=== PATIENT | female | born 1935 | race Caucasian/White ===

== ENCOUNTER 2016-09-19 05:32 | Inpatient (IN) ==
[2016-09-07 10:48] LABS: Basophils # 0.1 10*3/uL (0.0-0.2); Basophils % 0.6 % (0.0-0.8); Eosinophils # 0.3 10*3/uL (0.0-0.87); Eosinophils % 3.3 % (0.00-10.9); Hematocrit 43.2 VOL% (35.7-47.0); Hemoglobin 13.6 GM/DL (12.0-16.0); Immature Granulocytes % 0.4 %; Immature Granulocytes Absolute 0.03 #; Lymphocytes # 1.8 10*3/uL (1.4-4.0); Lymphocytes % 21.9 % (21.3-54.2); Mean Corpuscular HGB Conc 31.5 GM/DL (32-36); Mean Corpuscular Hemoglobin 27 PG (27-34); Mean Corpuscular Volume 85.7 FL (87-102); Mean Platelet Volume 10.8 FL (9.6-12.0); Monocytes # 0.6 10*3/uL (0.11-0.8); Monocytes % 7.7 % (1.7-12.7); Neutrophils # 5.4 10*3/uL (1.4-7.4); Neutrophils % 66.1 % (38.7-73.9); Platelet Count 231 T/CUMM (130-400); Red Blood Count 5.04 MC/CUMM (3.8-5.5); Red Cell Distribution Width 13.9 % (9.3-17.3); White Blood Count 8.2 T/CUMM (4-12)
[2016-09-07 10:54] LABS: Apearance,Urine Slightly Hazy (Clear); Bacteria,Urine Occasional /HPF (Few); Bilirubin,Urine Negative (Negative); Blood, Urine Negative (Negative); Glucose,Urine (UA) Negative (Negative); Ketones,Urine Negative (Negative); Mucus,Urine Occasional /LPF (Occasional); Nitrite,Urine Negative (Negative); Protein,Urine Negative; RBC,Urine 2 /HPF (0-4); Squamous Epithelial Cell,Urine Occasional /HPF (0-10); Urine Color Yellow (Yellow); Urine Specific Gravity 1.016 (1.001-1.035); Urine Urobilinogen < 2.0 EU/DL (0.2-1.0); WBC,Urine 22 /HPF (0-6)
[2016-09-07 10:58] LABS: PT Patient Result 10.7 SECS; Partial Thromboplastin Time 26.8 SECS (0-40)
[2016-09-07 11:22] LABS: Albumin 4.1 G/DL (3.4-5.0); Bilirubin,Total 0.5 MG/DL (0.2-1.0); Calcium 8.9 MG/DL (8.5-10.1); Osmolality,Calculated 287.1 MOS/KG (273-304); Potassium 4.4 MMOL/L (3.5-5.1); Total Protein 6.5 G/DL (6.4-8.3)
--- NOTE | 2016-09-07 11:50 | XRay Report ---
XR chest 2V Indication: Preoperative respiratory evaluation. Comparison: Chest x-ray 05/06/2015 Technique: PA and lateral chest x-ray was performed. Findings: The heart size is within normal limits. Mild atherosclerotic calcification of the aortic knob is present. The mediastinal contour demonstrates no significant abnormality. The lungs are clear. Bones and soft tissues demonstrate no acute abnormality. Surgical absence of the gallbladder is demonstrated. Impression: 1. No active cardiopulmonary disease. 09/07/2016 11:47 AM PROCEDURE INTERPRETED AT [facility] DEPARTMENT OF RADIOLOGY Final Report Signed by: Dr. Winston Fernandez
[2016-09-19] MEDS ORDERED: VANCOMYCIN INJ 1,000 MG in SODIUM CHLORIDE 0.9% 250 ML IV ONE (06:00)
[2016-09-19] MEDS ORDERED: ceFAZolin 1,000 MG VIAL ONE (06:08)
[2016-09-19] MEDS ORDERED: FAMOTIDINE 20 MG TABLET ONE (06:08)
[2016-09-19] MEDS ORDERED: SODIUM CHLORIDE 0.9% 100 ML IV ONE ×2 (06:08→06:10)
[2016-09-19] MEDS ORDERED: VANCOMYCIN 1,000 MG VIAL ONE (06:08)
[2016-09-19] MEDS ORDERED: LORazepam 1 MG TABLET ONE (06:08)
--- NOTE | 2016-09-19 06:57 | EKG Report ---
Stationary ECG Study [facility] Test Date: 09/19/2016 6:56:05 AM Pat Name: IVONE KASPER Department: Room: 611 Gender: F Nozzle Tender: JESSICA : 1935 Requested by: Singh Mcintyre Order Number: [id number] Reading MD: MARGOT LOPEZ Intervals [place] Rate: 57 P: 49 WY: 166 QRS: -10 QRSD: 86 T: 18 QT: 446 QTc: 440 Interpretive Statements SINUS RHYTHM WITH OCCASIONAL VENTRICULAR PREMATURE COMPLEXES LOW QRS VOLTAGE IN PRECORDIAL LEADS ANTEROSEPTAL MYOCARDIAL INFARCTION, PROBABLY OLD LEFT AXIS DEVIATION Electronically Signed On 09-19-16 07:15:35 CDT by MARGOT LOPEZ [email or web address]
[2016-09-19] MEDS ORDERED: FAMOTIDINE 20 MG TABLET PO ONE (07:00)
[2016-09-19] MEDS ORDERED: LORazepam 1 MG TABLET PO ONE (07:00)
--- NOTE | 2016-09-19 07:01 | History and Physical Update ---
History and Physical Update - History and Physical H&P was reviewed, the patient examined and there: are no changes in the patients condition since last H&P was completed.
[2016-09-19] MEDS: LACTATED RINGERS 1,000 ML IV SCH ×2 (07:31→17:38)
[2016-09-19] MEDS ORDERED: METOCLOPRAMIDE 10 MG TABLET PO ONE (08:00)
[2016-09-19] MEDS ORDERED: BISACODYL 10 MG SUPP RECTAL PRN (09:19)
[2016-09-19] MEDS ORDERED: ONDANSETRON 4 MG/2 ML VIAL IV PRN (09:19)
[2016-09-19] MEDS ORDERED: PROMETHAZINE 25 MG/1 ML VIAL IM PRN (09:19)
[2016-09-19] MEDS ORDERED: diphenhydrAMINE CAP 25 MG CAPSULE PO PRN (09:19)
[2016-09-19] MEDS ORDERED: NALOXONE 0.4 MG/ML VIAL IV PRN (09:19)
[2016-09-19] MEDS ORDERED: LACTULOSE 20 GM/30 ML UDCUP PO PRN (09:19)
[2016-09-19] MEDS ORDERED: TEMAZEPAM 7.5 MG CAPSULE PO PRN (09:19)
[2016-09-19] MEDS ORDERED: ONDANSETRON 4 MG/2 ML VIAL ONE (09:20)
[2016-09-19] MEDS ORDERED: PROPOFOL 200 MG/20 ML VIAL IV ONE (09:20)
[2016-09-19] MEDS ORDERED: DEXAMETHASONE 10 MG/1 ML VIAL ONE (09:20)
[2016-09-19] MEDS ORDERED: NEOSTIGMINE 10 MG/10 ML VIAL ONE (09:20)
[2016-09-19] MEDS ORDERED: GLYCOPYRROLATE 0.4 MG/2 ML VIAL ONE (09:20)
[2016-09-19] MEDS ORDERED: PHENYLEPHRINE 1 MG/10 ML SYRINGE IV ONE (09:20)
[2016-09-19] MEDS ORDERED: KETOROLAC 30 MG/1 ML VIAL ONE (09:20)
[2016-09-19] MEDS ORDERED: ROCURONIUM 100 MG/10 ML VIAL IV ONE (09:20)
[2016-09-19] MEDS ORDERED: LIDOCAINE 2% 5 ML VIAL ONE (09:20)
[2016-09-19] MEDS ORDERED: DEXTROSE 50% 25 GM/50 ML VIAL IV PRN (09:28)
[2016-09-19] MEDS ORDERED: GLUCAGON 1 MG VIAL IM PRN (09:28)
--- NOTE | 2016-09-19 10:56 | XRay Report ---
History: Postop total right hip replacement Date: 09/19/2016 Study: Right hip single view Comparison exam: No previous The patient is immediately postop right hip replacement. Hip prosthesis is well conjugated. Postsurgical soft tissue emphysema overlies the lateral right hip region. There is no radiographic evidence of complication. There are some superimposed surgical instruments over the regional soft tissues. Impression: Satisfactory appearance of the right hip replacement PROCEDURE INTERPRETED AT [facility] DEPARTMENT OF RADIOLOGY Final Report Signed by: Dr. Ana Lilia Xiao
[2016-09-19 11:02] LABS: Apearance,Urine CLEAR (Clear); Bacteria,Urine Few /HPF (Few); Bilirubin,Urine Negative (Negative); Blood, Urine Negative (Negative); Glucose,Urine (UA) Negative (Negative); Ketones,Urine Negative (Negative); Mucus,Urine Occasional /LPF (Occasional); Nitrite,Urine Negative (Negative); Protein,Urine Negative; RBC,Urine 4 /HPF (0-4); Squamous Epithelial Cell,Urine Occasional /HPF (0-10); Urine Color Straw (Yellow); Urine Specific Gravity 1.006 (1.001-1.035); Urine Urobilinogen < 2.0 EU/DL (0.2-1.0); WBC,Urine 39 /HPF (0-6)
[2016-09-19] MEDS ORDERED: SEVOFLURANE 1 UNIT/15 MINUTE INH ONE (11:21)
--- NOTE | 2016-09-19 11:21 | Anesthesia Post-Op ---
Anesthesia Post OP - Post Ansesthetic Evaluation Patient seen in post op: Yes Resp: within normal limits CV: within normal limits Mental: within normal limits Temp: within normal limits Mgrg-[id number]: within normal limits Nausea and Vomiting: within normal limits Pain: within normal limits
[2016-09-19] MEDS ORDERED: ACETAMINOPHEN 1,000 MG/100 ML VIAL IV ONE (11:22)
[2016-09-19] MEDS ORDERED: fentaNYL 100 MCG/2 ML VIAL ONE (11:22)
[2016-09-19] MEDS ORDERED: MIDAZOLAM 2 MG/2 ML VIAL ONE (11:22)
[2016-09-19] MEDS ORDERED: LACTATED RINGERS 1,000 ML IV ONE (11:22)
[2016-09-19] MEDS: MORPHINE PCA 30 MG/30 ML SYRINGE IV SCH (11:38)
[2016-09-19] MEDS: INSULIN REGULAR 100 UNIT/ML SUBCUT SCH ×3 (13:24→21:48)
--- NOTE | 2016-09-19 16:28 | Orthopedic Progress Note ---
Orthopedics - Subjective Interval history: Comfortable alert neurovascular intact discussed up in a.m. Exam - Constitutional Vitals: Period Temp Pulse Resp BP Sys/Villavicencio Pulse Ox Last 24 Hr 97.0 F-97.9 F 63-105 16-20 123-191/51-96 75-100 Results - Labs CBC & BMP: 09/07/16 10:38 09/07/16 10:38
--- NOTE | 2016-09-19 16:35 | Operative Note ---
DATE OF SURGERY: 09/19/2016 PREOPERATIVE DIAGNOSIS: OSTEOARTHRITIS, RIGHT HIP. POSTOPERATIVE DIAGNOSIS: OSTEOARTHRITIS, RIGHT HIP. OPERATIVE PROCEDURE: RIGHT TOTAL HIP. SURGEON: Nabil Lobo Jr., MD COMMUNICATIONS SUPERINTENDENT: Dr. Aburto. ANESTHESIA: General. INDICATIONS: An 81-year-old white female with severe osteoarthritis to her right hip. She is havin g difficult time mobilizing and is in severe pain, unresponsive to conservative measures. She has b een cleared medically for surgery, presenting today for elective right total hip. OPERATIVE PROCEDURE: The patient was taken to the operating room and under general anesthetic, posit ioned in the left lateral decubitus position. The right hip and lower extremity were prepped and dr aped in the usual sterile manner. A curvilinear incision was made over the posterolateral aspect of the right hip. Sharp dissection was carried down through the skin and subcutaneous tissue. The g luteus and IT band were split. The hip internally rotated, and the short rotators and capsule were reflected off the back of the proximal femur. The head dislocated and resected. The acetabulum exp osed. Sequentially reamed up to 47 and 48, cup press-fit into place and secured with 2 screws. A 1 0-degree all polyethylene liner placed. The proximal femur was then prepared for the implant. Of n ote, the chondral surfaces of both head and acetabulum were severely involved. Once the proximal fe mur was prepared for the cemented stems, ultimately selecting a size 4 with a plus 1 head. These tr ial components were removed using third-generation techniques. The femoral stem was cemented and pl aced after the cement hardened, trial reductions were performed again selecting the wand head. Afte r dislocation and removal of the trial, the permanent implant was secured on the taper and hip reloc ated. The wound was copiously irrigated. The intraoperative film confirmed satisfactory postop pos itioning. Posterior capsule layer was closed with #1 Vicryl also the IT bland and gluteal layer bibi sed with #1 Vicryl over two 1/8-inch Hemovac drains. 2-0 Vicryl for the subcutaneous layer and stap les for skin. A sterile dressing applied, she rolled supine, abduction pillow placed. Taken to the recovery room in stable condition.
--- NOTE | 2016-09-19 17:29 | Cardiology Consult Note ---
Kelly Jones April, RN, am scribing for, and in the presence of, LoveArteagaDO kathleen 17 :29. Assessment and Plan - Time spent with patient Time spent with patient: Greater than 30 minutes (Due to assessment, planning, documentation, medication review) (1) Status post total hip replacement, right Status: Acute Current Visit: Yes (2) CAD (coronary artery disease) Status: Chronic Current Visit: Yes Qualifiers: Coronary Disease-Associated Artery/Lesion type: [place] artery [place] vs. transplanted heart: [place] heart Associated angina: without angina Qualified Code(s): I25.10 - Atherosclerotic heart disease of [place] coronary artery without angina pectoris (3) Hyperlipidemia Status: Chronic Current Visit: Yes (4) Hypertension Status: Chronic Current Visit: Yes History of Present Illness - Data of Consult Patient: known to practice within the last 3 years Consult date: 09/19/16 Requesting Physician: Nabil Lobo Jr. - Consult Narrative Reason for consult: Follow postoperatively History of present illness: Utility Specialist: Dr. Quintero Ms. Anderson is a 81 year old female with a history of CAD, hypertension, diabetes, dyslipidemia, and seizures. She is still very drowsy so much of this history is taken from her children who are at the bedside. February 2013 at [place] she had PCI to RCA. Other surgical history includes bilateral knee, cholecystectomy , hysterectomy, hernia repair, right arm, and bilateral cataract. Family history includes father with AR and mother and siblings with cancer. She reports being a lifetime non-smoker. She saw Dr. Quintero in the clinic September 06, 2016 and she had echo of the revealed ejection fraction 55%. On September 07, 2016 she had nuclear stress test that was read as probably a normal perfusion study with no evidence of ischemia. It showed small partially reversible perfusion abnormality of moderate intensity in the apical segment, anterior region, and inferior region. Improvement with prone imaging suggesting artifact was noted. Dr. Quintero recommended proceeding with surgery because the patient was found to be intermediate risk of perioperative cardiovascular complications due to her condition. Ms. Anderson was admitted today for right total hip replacement with Dr. Yamil Mahoney. Currently she is resting in bed in no acute distress. She denies having any chest pain, shortness of breath, palpitations, or dizziness. Oxygen is in use via nasal cannula. Vital signs are stable with heart rates in the 70s-80s and blood pressure 120s over 50s. Home meds have been restarted, Plavix is scheduled to be restarted with a dose given in the morning. EKG done this morning showed sinus bradycardia with heart rate of 57. I discussed with Ms. Mendoza. History as above. The patient is seen post operatively and has no complaints. She recently had a nuclear stress test that was low risk. I saw the patient later in the day than Ms. Garvin. There is no one present for the discussion. CC: Nabil Lobo Jr., MD - Home Medications and Allergies Home Medications: Home Medications Medication Instructions Recorded Confirmed Type Aspirin [Ecotrin] 81 mg PO DAILY 04/20/15 09/19/16 History Clopidogrel [Plavix] 75 mg PO DAILY 04/20/15 09/19/16 History Donepezil HCl 10 mg PO DAILY 04/20/15 09/19/16 History Lisinopril 40 mg PO DAILY 04/20/15 09/19/16 History Metoprolol Tartrate Tab [Lopressor 25 mg PO DAILY 04/20/15 09/19/16 History Tab] Naproxen [Naprosyn Tab] 250 mg PO BID 04/20/15 09/19/16 History OXcarbazepine [Oxcarbazepine] 75 mg PO DAILY 04/20/15 09/19/16 History Pantoprazole Tab [Protonix Tab] 40 mg PO DAILY 04/20/15 09/19/16 History Rosuvastatin [Crestor] 20 mg PO DAILY 04/20/15 09/19/16 History Sertraline [Zoloft] 25 mg PO DAILY 04/20/15 09/19/16 History glipiZIDE [Glipizide] 5 mg PO DAILY 04/20/15 09/19/16 History Docusate Sodium [Stool Softener] 100 mg PO DAILY 09/19/16 09/19/16 History Timolol 0.5% Oph Soln [Timoptic 1 drop BOTH EYES BID 09/19/16 09/19/16 History 0.5%] Allergies/Adverse Reactions: Allergies Allergy/AdvReac Type Severity Reaction Status Date / Time povidone-iodine Allergy Severe HIVES Verified 09/19/16 06:55 [From Betadine] soap [From Betadine] Allergy Severe HIVES Verified 09/19/16 06:55 - Constitutional Constitutional: Present: as per HPI - EENT Eyes: Present: loss of vision, requires corrective lense Ears: Absent: decreased hearing, tinnitus Nose, mouth and throat: Absent: epistaxis, headache(s), neck pain - Cardiovascular Cardiovascular: Absent: chest pain at rest, chest pain with activity, diaphoresis, dyspnea, dyspnea on exertion, edema, radiating jaw, neck or arm pain, lightheadedness, orthopnea, palpitations - Respiratory Respiratory: Absent: cough, dyspnea, hemoptysis, dyspnea on exertion, wheezing - Gastrointestinal Gastrointestinal: Absent: abdominal pain, constipation, diarrhea, hematemesis, hematochezia, melena, nausea, vomiting - Genitourinary Genitourinary: Absent: dysuria, hematuria - Musculoskeletal Musculoskeletal: Present: limited range of motion, muscle weakness - Neurological Neurological: Present: abnormal gait. Absent: dizziness, headache(s), syncope - Psychiatric Psychiatric: Absent: anxiety, depression - Endocrine Endocrine: Present: fatigue - Hematologic/Lymphatic Hematologic/Lymphatic: Present: easy bruising. Absent: easy bleeding Medical,Surgical,& Family Hx - Medical History Cardio: History of: CAD, Hypertension Neurology: History of: Seizures HEENT: History of: Eye Problem, Dental Problems (Dentures) Endocrine: History of: Diabetes Mellitus (NIDDM) Genitourinary: History of: Recurring Urinary Tract Infections (LAST WEEK HAD ANTIOBIOTIC 08/30/16) Gastrointestinal: History of: GERD Musculoskeletal: History of: Musculoskeletal Problems (broken right arm OA R) - Surgical History Cardiac Surgeries: Sugical HX of: Cardiac Catheterization (At [facility] in February 2013 with stent) HEENT Surgeries: Surgical HX of: Eye Surgery (Bilateral cataracts), Tonsilectomy & Adenoidectomy Abdominal Surgeries: Surgical HX of: Cholecystectomy, Hernia Repair (has mesh) Reproductive Surgeries: Surgical HX of;: Hysterectomy (total) Orthopedic Surgeries: Surgical HX of;: Total Hip Replacement (R HIP), Total Knee Replacement (BILATERAL) - Family History Family History: Reports;: Family Cancer (Mother and siblings), Family Heart Disease (Father) - Social History Smoking Status: Never smoker Have you smoked in the last 12 months: No Frequency of Alcohol Use: None Type of Drug Use: None Lives With:: Alone Functional capacity: uses cane/walker Physical Examination Vital Signs Temp Pulse Resp BP Pulse Ox 97.9 F 63 20 191/86 97 09/19/16 07:13 09/19/16 07:13 09/19/16 07:13 09/19/16 07:13 09/19/16 07:13 General: Present: Appears Well, No Apparent Distress HEENT: Present: PERRL, Mucus Membranes Moist Neck: Present: Supple Neck, Midline Trachea, No Bruit Cardiac: Present: Regular Rhythm, Audible Murmur (tricuspid insufficiency 3/6 murmur) Lungs: Present: Normal Breath Sounds, Oxygen (Via nasal cannula), No Wheeze, Rales, Rhonchi Neuro: Absent: Resting Tremor, Essential Tremor Abdomen: Present: Soft, Active Bowel Sounds, Non-Tender. Absent: Distended Incision: Present: Incision Site (Dressing to right hip dry and intact) Musculoskeletal: Present: Decreased Range of Motion, Pain in Joint Gait: Present: Poor Gait Extremities: Present: No Edema, Normal Upper Extr. Pulses, Normal Lower Extr. Pulses. Absent: Normal Gait Result/EKG - Labs CBC & BMP: 09/07/16 10:38 09/07/16 10:38 Lab Results: I have reviewed the past 24 hour labs Labs: Laboratory Results - last 24 hr 09/19/16 09/19/16 09/19/16 06:22 06:22 10:05 POC Glucose 122 H Urine Color Straw Urine Appearance Clear Urine pH 7.0 Ur Specific [place] 1.006 Urine Protein Negative Urine Glucose (UA) Negative Urine Ketones Negative Urine Blood Negative Urine Nitrate Negative Urine Bilirubin Negative Urine Urobilinogen < 2.0 H Urine Leukocytes Small H Urine RBC 4 Urine WBC 39 Ur Squamous Epith Cells Occasional Urine Bacteria Few Urine Mucus Occasional Ur Culture Indicated? Results to follow Blood Type O POSITIVE Antibody Screen Negative - EKG EKG results: interpreted by me EKG shows: sinus rhythm ILove Shea, DO, personally performed the services described in this documentation, ascribed by Elke Mendoza RN in my presence, and it is both accurate and complete 729 .
[2016-09-19] MEDS: DOCUSATE SODIUM 100 MG CAPSULE PO SCH (21:48)
[2016-09-19] MEDS: NAPROXEN 250 MG TABLET PO SCH (21:48)
[2016-09-20] MEDS: FONDAPARINUX 2.5 MG/0.5 ML SYRINGE SUBCUT SCH (03:15)
[2016-09-20 06:28] LABS: Basophils % 0.2 % (0.0-0.8); Eosinophils % 0.1 % (0.00-10.9); Hematocrit 25.8 VOL% (35.7-47.0); Hemoglobin 8.3 GM/DL (12.0-16.0); Immature Granulocytes % 0.6 %; Immature Granulocytes Absolute 0.07 #; Lymphocytes # 1.7 10*3/uL (1.4-4.0); Lymphocytes % 13.9 % (21.3-54.2); Mean Corpuscular HGB Conc 32.2 GM/DL (32-36); Mean Corpuscular Hemoglobin 27 PG (27-34); Mean Corpuscular Volume 83.2 FL (87-102); Mean Platelet Volume 11.3 FL (9.6-12.0); Monocytes # 1.3 10*3/uL (0.11-0.8); Monocytes % 11.2 % (1.7-12.7); Neutrophils # 8.9 10*3/uL (1.4-7.4); Platelet Count 219 T/CUMM (130-400); Red Cell Distribution Width 13.9 % (9.3-17.3)
[2016-09-20] MEDS: LACTATED RINGERS 1,000 ML IV SCH (06:49)
[2016-09-20 06:58] LABS: Osmolality,Calculated 285.3 MOS/KG (273-304)
[2016-09-20 06:59] LABS: Potassium 4.4 MMOL/L (3.5-5.1)
[2016-09-20] MEDS ORDERED: SODIUM CHLORIDE 0.9% 250 ML IV PRN (07:46)
--- NOTE | 2016-09-20 07:46 | Orthopedic Progress Note ---
Orthopedics - Subjective Interval history: Comfortable Hemovac removed neurovascular intact will start PT today hemoglobin down to 8.3 expected to be even lower tomorrow therefore would give her some blood this afternoon after her PT will need rehab/swing bed placement. Discussed agrees. Exam - Constitutional Vitals: Period Temp Pulse Resp BP Sys/Villavicencio Pulse Ox Last 24 Hr 96.9 F-97.9 F 57-105 16-20 97-187/42-96 75-100 Results - Labs CBC & BMP: 09/20/16 05:41 09/20/16 05:41
[2016-09-20] MEDS ORDERED: LISINOPRIL 20 MG TABLET PO SCH (09:00)
[2016-09-20] MEDS: INSULIN REGULAR 100 UNIT/ML SUBCUT SCH ×4 (10:28→22:14)
[2016-09-20] MEDS: OXcarbazepine 300 MG TABLET PO SCH (10:41)
[2016-09-20] MEDS: glipiZIDE 5 MG TABLET PO SCH (10:41)
[2016-09-20] MEDS: PANTOPRAZOLE 40 MG TABLET PO SCH (10:42)
[2016-09-20] MEDS: CLOPIDOGREL 75 MG TABLET PO SCH (10:42)
[2016-09-20] MEDS: ROSUVASTATIN 20 MG TABLET PO SCH (10:43)
[2016-09-20] MEDS: DONEPEZIL 10 MG TABLET PO SCH (10:43)
[2016-09-20] MEDS: SERTRALINE 25 MG TABLET PO SCH (10:44)
[2016-09-20] MEDS: ASPIRIN EC 81 MG TABLET PO SCH (10:44)
[2016-09-20] MEDS: DOCUSATE SODIUM 100 MG CAPSULE PO SCH ×2 (10:45→22:15)
[2016-09-20] MEDS: NAPROXEN 250 MG TABLET PO SCH ×2 (10:45→22:15)
[2016-09-20] MEDS: METOPROLOL TARTRATE 25 MG TABLET PO SCH (10:46)
[2016-09-20] MEDS: MORPHINE PCA 30 MG/30 ML SYRINGE IV SCH (10:47)
--- NOTE | 2016-09-20 11:21 | Pathology Report from [facility] ---
ACCESSION # : [id number] PATIENT NAME : Ivone Kasper ORDERING DR : ELDA MACIAS JR, MD CLINICAL HX: Right hip osteoarthritis POST-OP DX: Same SPECIMEN INFO: Right hip bone and tissue GROSS DESCRIPTION: The specimen is received in formalin labeled with the patient 's name and consists of a femoral head measuring 4.3 x 4.7 cm x up to 4.8 cm. The articular surface is red-maharaj with an area eburnation noted measuring up to 3.8 cm. Cut surface is smooth with some mild bone softening appreciated. Also in the container are multiple fragments of bone shavings measuring collectively 10.5 x 4.8 cm. Farm Instructor sections submitted in one cassette following decalcification. DIAGNOSIS FOR IVONE KASPER: Right femoral head with changes of degenerative joint disease/ osteoarthritis.Unremarkable hematopoietic marrow with no abnormal collections of blasts, plasma cells, tumor cells or lymphocytes. SERVICE DATE: 09/19/2016 REPORT DATE: 09/20/2016 PATHOLOGIST: Daniel Ta M.D. [facility]
--- NOTE | 2016-09-20 13:59 | Cardiology Progress Note ---
Kelly Jones April, RN, am scribing for, and in the presence of, Jenni Aleman DO 13 :59. Assessment and Plan (1) Status post total hip replacement, right Status: Acute Current Visit: Yes (2) CAD (coronary artery disease) Status: Chronic Current Visit: Yes Qualifiers: Coronary Disease-Associated Artery/Lesion type: [place] artery [place] vs. transplanted heart: [place] heart Associated angina: without angina Qualified Code(s): I25.10 - Atherosclerotic heart disease of [place] coronary artery without angina pectoris (3) Hyperlipidemia Status: Chronic Current Visit: Yes (4) Hypertension Status: Chronic Assessment and plan: Currently the blood pressure is low this is multifactorial anemia with pain and sedation medication will hold her lisinopril. Current Visit: Yes Cardiology - PN: Subj Interval history: Roof Shingler: Dr. Quintero Ms. Anderson is day 1 postop right total hip with Dr. Yamil Mahoney. Dressing noted to right hip dry and intact. Today she is awake and alert. She denies chest pain , shortness of breath, palpitations, or dizziness. Oxygen is in use via nasal cannula. Her H&H this morning is 8.3 and 25.8, she is to get blood after physical therapy. I saw the patient this afternoon with Kelly. Patient is concerned about her low blood pressure I concur we need to decrease her medicines. She is anticipating a transfusion soon she is anemic. She denies any chest pain. I will discontinue her lisinopril her blood pressure comes back up. Exam (Progress Note) - Constitutional Vitals: Period Temp Pulse Resp BP Sys/Villavicencio Pulse Ox Last 24 Hr 96.9 F-97.9 F 57-105 16-20 97-187/42-96 75-100 General appearance: normal weight, no acute distress - Head Head exam: Absent: abrasion, hematoma - Eye Eye exam: Absent: periorbital swelling, laceration to eyelids - Respiratory Respiratory exam: Present: clear to auscultation bilaterally, other (Oxygen via nasal cannula). Absent: accessory muscle use, chest wall tenderness - Cardiovascular Cardiovascular exam: Present: regular rate and rhythm - GI/Abdominal GI/Abdominal exam: Present: normal bowel sounds, soft. Absent: distended, tenderness - Extremities Exam Extremities exam: Present: other (Dressing to right hip). Absent: edema - Neurological Exam Neurological exam: Present: alert, oriented X3 - Psychiatric Psychiatric exam: Present: normal affect, normal mood - Skin Skin exam: Present: warm, dry Result/EKG - Labs CBC & BMP: 09/20/16 05:41 09/20/16 05:41 Lab Results: I have reviewed the past 24 hour labs Labs: Laboratory Results - last 24 hr 09/19/16 09/19/16 09/19/16 10:05 13:15 17:03 WBC RBC Hgb Hct MCV MCH MCHC RDW Plt Count MPV Neut % (Auto) Lymph % (Auto) [place] % (Auto) Eos % (Auto) Baso % (Auto) Neut # (Auto) Lymph # (Auto) [place] # (Auto) Eos # (Auto) Baso # (Auto) Immature Gran % Nucleated RBC % Immature Gran # Nucleated RBCs # Sodium Potassium Chloride Carbon Dioxide Anion Gap BUN Creatinine GFR Calculation BUN/Creatinine Ratio Glucose POC Glucose 149 H 196 H Calculated Osmolality Calcium Urine Color Straw Urine Appearance Clear Urine pH 7.0 Ur Specific [place] 1.006 Urine Protein Negative Urine Glucose (UA) Negative Urine Ketones Negative Urine Blood Negative Urine Nitrate Negative Urine Bilirubin Negative Urine Urobilinogen < 2.0 H Urine Leukocytes Small H Urine RBC 4 Urine WBC 39 Ur Squamous Epith Cells Occasional Urine Bacteria Few Urine Mucus Occasional Ur Culture Indicated? Results to follow Blood Type Antibody Screen Crossmatch Blood Bank Comment 09/19/16 09/20/16 09/20/16 21:04 05:40 05:41 WBC 12.0 RBC 3.10 L Hgb 8.3 L Hct 25.8 L MCV 83.2 L MCH 27 MCHC 32.2 RDW 13.9 Plt Count 219 MPV 11.3 Neut % (Auto) 74.0 H Lymph % (Auto) 13.9 L [place] % (Auto) 11.2 Eos % (Auto) 0.1 Baso % (Auto) 0.2 Neut # (Auto) 8.9 H Lymph # (Auto) 1.7 [place] # (Auto) 1.3 H Eos # (Auto) 0.0 Baso # (Auto) 0.0 Immature Gran % 0.6 Nucleated RBC % 0.0 Immature Gran # 0.07 Nucleated RBCs # 0.00 Sodium Potassium Chloride Carbon Dioxide Anion Gap BUN Creatinine GFR Calculation BUN/Creatinine Ratio Glucose POC Glucose 183 H Calculated Osmolality Calcium Urine Color Urine Appearance Urine pH Ur Specific [place] Urine Protein Urine Glucose (UA) Urine Ketones Urine Blood Urine Nitrate Urine Bilirubin Urine Urobilinogen Urine Leukocytes Urine RBC Urine WBC Ur Squamous Epith Cells Urine Bacteria Urine Mucus Ur Culture Indicated? Blood Type Cancelled Antibody Screen Cancelled Crossmatch See Detail Blood Bank Comment Cancelled 09/20/16 09/20/16 09/20/16 05:41 07:01 Unknown WBC RBC Hgb Hct MCV MCH MCHC RDW Plt Count MPV Neut % (Auto) Lymph % (Auto) [place] % (Auto) Eos % (Auto) Baso % (Auto) Neut # (Auto) Lymph # (Auto) [place] # (Auto) Eos # (Auto) Baso # (Auto) Immature Gran % Nucleated RBC % Immature Gran # Nucleated RBCs # Sodium 141 Potassium 4.4 Chloride 106 Carbon Dioxide 28 Anion Gap 11.4 BUN 19 H Creatinine 0.90 GFR Calculation 63 BUN/Creatinine Ratio 21.00 H Glucose 158 H POC Glucose 164 H Calculated Osmolality 285.3 Calcium 8.0 L Urine Color Urine Appearance Urine pH Ur Specific [place] Urine Protein Urine Glucose (UA) Urine Ketones Urine Blood Urine Nitrate Urine Bilirubin Urine Urobilinogen Urine Leukocytes Urine RBC Urine WBC Ur Squamous Epith Cells Urine Bacteria Urine Mucus Ur Culture Indicated? Blood Type O POSITIVE Antibody Screen Crossmatch Blood Bank Comment Specialty Discharge - Follow Up or Referrals Follow up with: Nabil Lobo Jr., MD [Physician] - Love Jones Shea, DO, personally performed the services described in this documentation, ascribed by Elke Mendoza RN in my presence, and it is both accurate and complete 359 .
[2016-09-20] MEDS ORDERED: TIMOLOL 0.5% OPH SOLN 5 ML BOTTLE BOTH EYES SCH (21:00)
[2016-09-20] MEDS: TIMOLOL 0.5% OPH SOLN 5 ML BOTTLE BOTH EYES SCH (22:15)
[2016-09-21] MEDS: FONDAPARINUX 2.5 MG/0.5 ML SYRINGE SUBCUT SCH (03:35)
[2016-09-21] MEDS: LACTATED RINGERS 1,000 ML IV SCH ×2 (04:14→07:20)
[2016-09-21 04:56] LABS: Basophils % 0.4 % (0.0-0.8); Eosinophils # 0.2 10*3/uL (0.0-0.87); Eosinophils % 2.1 % (0.00-10.9); Hematocrit 26.6 VOL% (35.7-47.0); Hemoglobin 8.7 GM/DL (12.0-16.0); Immature Granulocytes % 0.5 %; Immature Granulocytes Absolute 0.04 #; Lymphocytes # 2.2 10*3/uL (1.4-4.0); Lymphocytes % 27.3 % (21.3-54.2); Mean Corpuscular HGB Conc 32.7 GM/DL (32-36); Mean Corpuscular Hemoglobin 27 PG (27-34); Mean Corpuscular Volume 83.1 FL (87-102); Mean Platelet Volume 11.2 FL (9.6-12.0); Monocytes # 1.1 10*3/uL (0.11-0.8); Monocytes % 13.5 % (1.7-12.7); Neutrophils # 4.6 10*3/uL (1.4-7.4); Neutrophils % 56.2 % (38.7-73.9); Platelet Count 134 T/CUMM (130-400); Red Cell Distribution Width 14.1 % (9.3-17.3); White Blood Count 8.1 T/CUMM (4-12)
[2016-09-21] MEDS: INSULIN REGULAR 100 UNIT/ML SUBCUT SCH ×4 (07:46→20:36)
[2016-09-21] MEDS: ASPIRIN EC 81 MG TABLET PO SCH (08:43)
[2016-09-21] MEDS: SERTRALINE 25 MG TABLET PO SCH (08:43)
[2016-09-21] MEDS: NAPROXEN 250 MG TABLET PO SCH ×2 (08:43→20:45)
[2016-09-21] MEDS: DOCUSATE SODIUM 100 MG CAPSULE PO SCH ×2 (08:43→20:45)
[2016-09-21] MEDS: ROSUVASTATIN 20 MG TABLET PO SCH (08:43)
[2016-09-21] MEDS: DONEPEZIL 10 MG TABLET PO SCH (08:43)
[2016-09-21] MEDS: CLOPIDOGREL 75 MG TABLET PO SCH (08:43)
[2016-09-21] MEDS: PANTOPRAZOLE 40 MG TABLET PO SCH (08:43)
[2016-09-21] MEDS: glipiZIDE 5 MG TABLET PO SCH (08:43)
[2016-09-21] MEDS: METOPROLOL TARTRATE 25 MG TABLET PO SCH (08:44)
[2016-09-21] MEDS: OXcarbazepine 300 MG TABLET PO SCH (08:44)
[2016-09-21] MEDS: MORPHINE PCA 30 MG/30 ML SYRINGE IV SCH (08:48)
[2016-09-21] MEDS: TIMOLOL 0.5% OPH SOLN 5 ML BOTTLE BOTH EYES SCH ×2 (08:51→20:45)
[2016-09-21] MEDS ORDERED: MORPHINE 2 MG/1 ML SYRINGE IV PRN ×2 (09:07→09:10)
--- NOTE | 2016-09-21 09:07 | Orthopedic Progress Note ---
Orthopedics - Subjective Interval history: Comfortable dressing is dry leg is not swollen no bleeding. Hemoglobin only went up to 8.7. Will continue with physical therapy and plan swing bed by weeks and will give an additional unit of PRBC tonight Exam - Constitutional Vitals: Period Temp Pulse Resp BP Sys/Villavicencio Pulse Ox Last 24 Hr 97.2 F-98.8 F 66-86 18-20 94-141/39-69 94-100 Results - Labs CBC & BMP: 09/21/16 04:36 09/20/16 05:41 Specialty Discharge - Follow Up or Referrals Follow up with: Naibl Lobo Jr., MD [Physician] -
[2016-09-21] MEDS ORDERED: SODIUM CHLORIDE 0.9% 250 ML IV PRN (09:08)
--- NOTE | 2016-09-21 12:04 | Cardiology Progress Note ---
Kelly Jones April RN, am scribing for, and in the presence of, Jenni Aleman DO 12 :04. Assessment and Plan (1) Status post total hip replacement, right Status: Acute Current Visit: Yes (2) CAD (coronary artery disease) Status: Chronic Current Visit: Yes Qualifiers: Coronary Disease-Associated Artery/Lesion type: [place] artery [place] vs. transplanted heart: [place]quois heart Associated angina: without angina Qualified Code(s): I25.10 - Atherosclerotic heart disease of [place]roqu[place] coronary artery without angina pectoris (3) Hyperlipidemia Status: Chronic Current Visit: Yes (4) Hypertension Status: Chronic Current Visit: Yes Cardiology - PN: Subj Interval history: Java Mobile Developer: Dr. Quintero Ms. Anderson is day 2 postop right total hip with Dr. Yamil Mahoney. Dressing to right hip is noted to be dry and intact. She denies having any chest pain, shortness of breath, palpitations, dizziness. She is using oxygen via nasal cannula. She received 2 units of blood product last night, her H&H today is 8.7 and 26.6. Blood pressure this morning 130/69. Ms. Anderson looks dramatically better today. I saw with Ms. Garvin. She had packed red cells yesterday with only a slight increase in her H&H and she states that she is scheduled for another unit today. She still on clopidogrel but has no overt signs or symptoms of bleeding. We have nothing further to add at this time and we will sign off all continue to follow in case she develops worsening anemia. For now I would continue her clopidogrel Exam (Progress Note) - Constitutional Vitals: Period Temp Pulse Resp BP Sys/Villavicencio Pulse Ox Last 24 Hr 97.2 F-98.8 F 66-86 18-20 94-141/39-69 94-100 General appearance: no acute distress - Head Head exam: Absent: abrasion, hematoma - Eye Eye exam: Absent: periorbital swelling, laceration to eyelids - Neck Neck exam: Absent: tenderness - Respiratory Respiratory exam: Present: clear to auscultation bilaterally, other (Oxygen via nasal cannula). Absent: accessory muscle use, chest wall tenderness - Cardiovascular Cardiovascular exam: Present: regular rate and rhythm. Absent: rubs - GI/Abdominal GI/Abdominal exam: Present: normal bowel sounds, soft. Absent: distended, tenderness - Extremities Exam Extremities exam: Present: other (Dressing to right hip). Absent: edema - Neurological Exam Neurological exam: Present: alert, oriented X3 - Psychiatric Psychiatric exam: Present: normal affect, normal mood - Skin Skin exam: Present: warm, dry Result/EKG - Labs CBC & BMP: 09/21/16 04:36 09/20/16 05:41 Lab Results: I have reviewed the past 24 hour labs Labs: Laboratory Results - last 24 hr 09/20/16 09/20/16 09/20/16 05:40 10:45 16:49 WBC RBC Hgb Hct MCV MCH MCHC RDW Plt Count MPV Neut % (Auto) Lymph % (Auto) [place] % (Auto) Eos % (Auto) Baso % (Auto) Neut # (Auto) Lymph # (Auto) [place] # (Auto) Eos # (Auto) Baso # (Auto) Immature Gran % Nucleated RBC % Immature Gran # Nucleated RBCs # POC Glucose 175 H 116 H Blood Type Cancelled Antibody Screen Cancelled Crossmatch See Detail Blood Bank Comment Cancelled 09/20/16 09/21/16 09/21/16 20:54 04:36 06:36 WBC 8.1 D RBC 3.20 L Hgb 8.7 L Hct 26.6 L MCV 83.1 L MCH 27 MCHC 32.7 RDW 14.1 Plt Count 134 D MPV 11.2 Neut % (Auto) 56.2 Lymph % (Auto) 27.3 [place] % (Auto) 13.5 H Eos % (Auto) 2.1 Baso % (Auto) 0.4 Neut # (Auto) 4.6 Lymph # (Auto) 2.2 [place] # (Auto) 1.1 H Eos # (Auto) 0.2 Baso # (Auto) 0.0 Immature Gran % 0.5 Nucleated RBC % 0.0 Immature Gran # 0.04 Nucleated RBCs # 0.00 POC Glucose 101 97 Blood Type Antibody Screen Crossmatch Blood Bank Comment Specialty Discharge - Follow Up or Referrals Follow up with: Nabil Lobo Jr., MD [Physician] - Love Jones Shea, DO, personally performed the services described in this documentation, ascribed by Elke Mendoza RN in my presence, and it is both accurate and complete .
[2016-09-21] MEDS ORDERED: ETOMIDATE 20 MG/10 ML VIAL IV ONE (18:57)
[2016-09-21] MEDS ORDERED: SUCCINYLCHOLINE 200 MG/10 ML VIAL ONE (18:57)
[2016-09-21] MEDS: MAGNESIUM HYDROXIDE SUSP 30 ML UDCUP PO PRN (23:14)
[2016-09-22] MEDS: FONDAPARINUX 2.5 MG/0.5 ML SYRINGE SUBCUT SCH (01:15)
[2016-09-22 05:19] LABS: Basophils % 0.4 % (0.0-0.8); Eosinophils # 0.4 10*3/uL (0.0-0.87); Eosinophils % 4.6 % (0.00-10.9); Hematocrit 27.3 VOL% (35.7-47.0); Immature Granulocytes % 0.5 %; Immature Granulocytes Absolute 0.05 #; Lymphocytes % 20.8 % (21.3-54.2); Mean Corpuscular Hemoglobin 27 PG (27-34); Mean Corpuscular Volume 83.2 FL (87-102); Mean Platelet Volume 11.2 FL (9.6-12.0); Neutrophils # 5.9 10*3/uL (1.4-7.4); Neutrophils % 62.7 % (38.7-73.9); Platelet Count 152 T/CUMM (130-400); Red Blood Count 3.28 MC/CUMM (3.8-5.5); Red Cell Distribution Width 13.8 % (9.3-17.3); White Blood Count 9.4 T/CUMM (4-12)
[2016-09-22] MEDS: MAGNESIUM HYDROXIDE SUSP 30 ML UDCUP PO PRN ×2 (06:10→20:49)
[2016-09-22] MEDS: INSULIN REGULAR 100 UNIT/ML SUBCUT SCH ×4 (07:33→20:44)
[2016-09-22] MEDS: OXcarbazepine 300 MG TABLET PO SCH (08:12)
[2016-09-22] MEDS: ROSUVASTATIN 20 MG TABLET PO SCH (08:12)
[2016-09-22] MEDS: SERTRALINE 25 MG TABLET PO SCH (08:12)
[2016-09-22] MEDS: PANTOPRAZOLE 40 MG TABLET PO SCH (08:12)
[2016-09-22] MEDS: ASPIRIN EC 81 MG TABLET PO SCH (08:12)
[2016-09-22] MEDS: DONEPEZIL 10 MG TABLET PO SCH (08:12)
[2016-09-22] MEDS: NAPROXEN 250 MG TABLET PO SCH ×2 (08:12→20:49)
[2016-09-22] MEDS: DOCUSATE SODIUM 100 MG CAPSULE PO SCH ×2 (08:12→20:49)
[2016-09-22] MEDS: METOPROLOL TARTRATE 25 MG TABLET PO SCH (08:12)
[2016-09-22] MEDS: glipiZIDE 5 MG TABLET PO SCH (08:12)
[2016-09-22] MEDS: TIMOLOL 0.5% OPH SOLN 5 ML BOTTLE BOTH EYES SCH ×2 (08:16→20:49)
--- NOTE | 2016-09-22 11:16 | Orthopedic Progress Note ---
Orthopedics - Subjective Interval history: Hemoglobin over 9 comfortable up in chair progressing nicely plan for rehab tomorrow Exam - Constitutional Vitals: Period Temp Pulse Resp BP Sys/Villavicencio Pulse Ox Last 24 Hr 96.5 F-99 F 68-88 15-18 119-175/42-66 92-99 Results - Labs CBC & BMP: 09/22/16 04:54 09/20/16 05:41 Specialty Discharge - Follow Up or Referrals Follow up with: Nabil Lobo Jr., MD [Physician] -
[2016-09-23] MEDS: FONDAPARINUX 2.5 MG/0.5 ML SYRINGE SUBCUT SCH (04:08)
[2016-09-23] MEDS: MAGNESIUM HYDROXIDE SUSP 30 ML UDCUP PO PRN (04:10)
[2016-09-23] MEDS: INSULIN REGULAR 100 UNIT/ML SUBCUT SCH ×2 (07:55→13:51)
--- NOTE | 2016-09-23 08:47 | Orthopedic Progress Note ---
Orthopedics - Subjective Interval history: Comfortable doing well with PT leg soft wound dry instructions given to swing bed today Exam - Constitutional Vitals: Period Temp Pulse Resp BP Sys/Villavicencio Pulse Ox Last 24 Hr 96.3 F-97.9 F 16-81 16-18 110-151/47-63 91-97 Results - Labs CBC & BMP: 09/22/16 04:54 09/20/16 05:41 Specialty Discharge - Follow Up or Referrals Follow up with: Nabil Lobo Jr., MD [Physician] - 10/24/16 9:45 am
--- NOTE | 2016-09-23 08:49 | Discharge Summary ---
Hospital Course - Hospital Course Hospital Course: Admitted for elective right total hip uncomplicated course discharged to [facility] Diagnosis - Discharge Diagnosis (1) Osteoarthritis of right hip Status: Acute Specialty Discharge - Follow Up or Referrals Follow up with: Nabil Lobo Jr., MD [Physician] - 10/24/16 9:45 am Discharge Plan - Discharge Data Disposition: Swing Bed, Hos Based, [facility] Condition at Discharge: Stable Discharge Diet: advance to your usual diet Activity: ambulate only with your walker, as per physical therapy, increase activity as tolerated Hygiene: may shower, keep area(s) dry Weight Bearing at Discharge: weight bear as tolerated (With hip precautions) Driving: not until seen by doctor - Discharge Medications New HYDROcodone/ACETAMIN 7.5-325 [[place] 7.5-325] 1 tablet PO Q4H PRN #25 tablet PRN Reason: Pain Moderate (4-7) Continue Lisinopril 40 mg PO DAILY Donepezil HCl 10 mg PO DAILY OXcarbazepine [Oxcarbazepine] 75 mg PO DAILY Rosuvastatin [Crestor] 20 mg PO DAILY Naproxen [Naprosyn Tab] 250 mg PO BID glipiZIDE [Glipizide] 5 mg PO DAILY Sertraline [Zoloft] 25 mg PO DAILY Pantoprazole Tab [Protonix Tab] 40 mg PO DAILY Metoprolol Tartrate Tab [Lopressor Tab] 25 mg PO DAILY Clopidogrel [Plavix] 75 mg PO DAILY Aspirin [Ecotrin] 81 mg PO DAILY Timolol 0.5% Oph Soln [Timoptic 0.5%] 1 drop BOTH EYES BID Docusate Sodium [Stool Softener] 100 mg PO DAILY - Follow Up or Referral Follow Up: Nabil Lobo Jr., MD [Physician] - 10/24/16 9:45 am - Forms/Instructions Instructions: Total Hip Replacement (DC) Additional Discharge Instructions: Discharge to swing bed continue home meds [place] for pain activity advancing total hip protocol with weight-bear as tolerated hip precautions daniela to be removed October 03 and wound Steri- Stripped follow-up with me 4 weeks Exam - Constitutional Vitals: Period Temp Pulse Resp BP Sys/Villavicencio Pulse Ox Last 24 Hr 96.3 F-97.9 F 16-81 16-18 110-151/47-63 91-97 Discharge Results Labs on day of discharge: Labs from last 24 hours 05/05/17 05/04/17 05/04/17 07:12 20:28 15:19 POC Glucose 118 H 107 H 163 H 09/22/16 11:16 POC Glucose 149 H DS: Provider Date of admission: 09/19/16 05:32 Primary care physician: . No PCP Attending physician on admission: Nabil Lobo Jr., MD Consults: 09/19/16 09:20 Consult to Case Mgmt/Social Srvs [CONS] Routine Reason for Case Mgmt/Social Srvs: Rehab Home Health Equipment Consult Comment: Bedside Commode, CPM, Walker Consult to Occupational Therapy [CONS] Routine Reason for Occupational Therapy: Evaluate and Treat Consult Comment: ADL's Consult to Physical Therapy [CONS] Routine Reason for Physical Therapy: Evaluate and Treat Gait Training 09/19/16 09:27 Consult to Physician [CONS] Routine Comment: Consulting Provider: Gin Quintero Consulting Provider Notified: Yes When should Consulting Provider be notified: Now Person Notified: matthew luna Date Notified: 09/19/16 Time Notified: 12:36 09/19/16 12:37 Consult to Pastoral Services [CONS] Routine Comment: Pastoral Screen: Request Psychologist Engineering Visit Pastoral Screen Source of Request: Family 09/19/16 13:16 Consult to Pharmacy [CONS] Routine Reason for Pharmacy Consult: Adjust Meds Renal Funct Discharging clinician: Nabil Lobo Jr., MD
[2016-09-23] MEDS: DONEPEZIL 10 MG TABLET PO SCH (09:15)
[2016-09-23] MEDS: NAPROXEN 250 MG TABLET PO SCH (09:15)
[2016-09-23] MEDS: OXcarbazepine 300 MG TABLET PO SCH (09:15)
[2016-09-23] MEDS: SERTRALINE 25 MG TABLET PO SCH (09:16)
[2016-09-23] MEDS: glipiZIDE 5 MG TABLET PO SCH (09:16)
[2016-09-23] MEDS: ROSUVASTATIN 20 MG TABLET PO SCH (09:17)
[2016-09-23] MEDS: METOPROLOL TARTRATE 25 MG TABLET PO SCH (09:17)
[2016-09-23] MEDS: ASPIRIN EC 81 MG TABLET PO SCH (09:17)
[2016-09-23] MEDS: PANTOPRAZOLE 40 MG TABLET PO SCH (09:17)
[2016-09-23] MEDS: TIMOLOL 0.5% OPH SOLN 5 ML BOTTLE BOTH EYES SCH (09:18)
[2016-09-23] MEDS: DOCUSATE SODIUM 100 MG CAPSULE PO SCH (09:20)
[2016-09-23 11:20] VITALS: BP 140/58
--- NOTE | 2016-09-27 09:08 | Physician Query Form ---
CLICK EDIT DOCUMENT TO SELECT QUERY ANSWER --> OK --> SIGN Dorene Myers RN Clinical Review Engineer W) [phone] (f) [phone] [email or web address]: Make your selection(s) from the choices in EACH section by typing an "x" and enter comments in the comment section. Please use your independent medical judgment in providing your response. This request does not imply that any particular answer is desired or expected. CLINICAL INDICATORS: (Providers should not edit this section) Based on documentation of "today hemoglobin down to 8.3 expected to be even lower tomorrow therefore would give her some blood" "had packed red cells yesterday with only a slight increase in her H&H and she states that she is scheduled for another unit today" Transfused total of 3 units PRBC. Based on the above, could you clarify which of the following conditions you are evaluating, treating, and/or monitoring? ( ) Blood loss anemia ( ) acute ( ) chronic ( ) acute on chronic (x ) Acute blood loss anemia on baseline chronic anemia ( ) Acute blood loss anemia as a complication of a procedure ( ) Iron deficiency anemia not associated with blood loss ( ) Dilutional anemia due to IV fluids ( ) Anemia due to chronic kidney disease ( ) Hemolytic anemia ( ) immune ( ) non-immune - please specify cause: ( ) Anemia due to other condition, please specify: ( ) Clinically unable to determine COMMENTS: Use of terms such as suspected, likely, or probable (associated with a specific diagnosis that is being evaluated, monitored, or treated as if it exists) are acceptable and can be restated in the discharge summary if not ruled out. MTDD
== END 2016-09-23 10:25 | disposition swing bed (61) | DRG 470 ==
LOC: N.SDSINP 05:32 → N.3E 12:17
PROVIDERS: ADMIT Orthopaedic Surgery; ATTEND Orthopaedic Surgery